=== PATIENT | female | born 1970 | race Caucasian/White ===

== ENCOUNTER → 2017-03-21 | Outpatient (CLI) | payer OTHER ==
[~2017-03-21] MED LIST: ANTIVERT 25MG25 MG PO; FLAGYL500 MG PO; NO HOME MEDICATIONS; PERCOCET 325 MG1 TA2 PO; PHENERGAN 25 TA25 MG PO; SUDAFED60 MG PO; VESICARE10 MG PO; WELLBUTRIN XL300 M1 PO; ZITHROMAX Z PA250 MG PO; ZOFRAN 4MG T4 MG/TAB PO
== END ==
LOC: MC.RAD 09:54
DX: Z12.31 Encounter for screening mammogram for malignant neoplasm of breast (principal)

== ENCOUNTER → 2018-05-01 | Outpatient (CLI) | payer OTHER | LOC: MC.RAD 08:20 | DX: Z12.31 Encounter for screening mammogram for malignant neoplasm of breast (principal) ==

== ENCOUNTER → 2021-03-16 | Day surgery (SDC) | payer OTHER | LOC: COL.LAB 08:00 → SDCO 11:30 | DX: Z20.822 Contact with and (suspected) exposure to COVID-19 (principal); Z53.8 Procedure and treatment not carried out for other reasons ==

== ENCOUNTER 2022-07-19 10:52 | Day surgery (SDC) | payer OTHER ==
[2022-07-19] VITALS (9 sets, daily range): BP systolic 107–147; BP diastolic 69–108; PULSE 50–73; TEMP 98.1
[~2022-07-19] VITALS: Ht 157.5 cm; Wt 84.3 kg
[2022-07-19 11:55] LABS: INR 1.2 (0.8-3.0); PROTHROMBIN TIME 13.9 SECONDS (9.7-12.8)
[2022-07-19 11:57] LABS: PARTIAL THROMBOPLASTIN TIME 32.5 SECONDS (26.0-37.0)
[2022-07-19 12:02] LABS: CALCIUM 9.1 mg/dL (8.4-10.2); CREATININE, serum 0.84 mg/dL (0.57-1.11); HEMATOCRIT 40.6 % (37.0-47.0); HEMOGLOBIN 13.2 g/dl (12.5-16.0); MEAN CELL VOLUME 88 fl (80.0-100.0); MEAN CORPUSCULAR HEMOGLOBIN 29 pg (27-31); MEAN CORPUSCULAR HGB CONC 33 g/dl (33.0-37.0); MEAN PLATELET VOLUME 9.7 fl (7.4-10.4); PLATELET COUNT 294 K/mm3 (130-400); POTASSIUM 4.5 mmol/L (3.5-4.5); RED BLOOD COUNT 4.61 M/mm3 (4.10-5.30); REDCELL DISTRIBUTION WIDTH-CV 13.2 % (11.5-14.5)
[2022-07-19] MEDS ORDERED: ASPIRIN E.C. 8181 MG PO (12:04)
[2022-07-19] MEDS ORDERED: CRESTOR40 MG PO (12:04)
[2022-07-19] MEDS ORDERED: PLAVIX 75MG TAB75 MG PO (12:04)
[2022-07-19] MEDS ORDERED: TOPROL XL 25MG25 MG PO (12:05)
[2022-07-19] MEDS ORDERED: QUALITY CHOICE125 MG PO (12:07)
[2022-07-19] MEDS ORDERED: CARAFATE S1 GM/10 ML PO (12:07)
[2022-07-19] MEDS ORDERED: PRIL40 PO (12:08)
[2022-07-19] MEDS ORDERED: IMDUR 30MG30 MG/TAB PO (13:34)
--- NOTE | 2022-07-19 14:46 | NUR ---
PT had some nausea and headache both of which were fairly severe. nausea was treated with zofran. nausea better now after pt vomited some liquid emesis. she was able to take some tylenol for her headache and at this time is generally feeling better. rt radial site looks good, is soft, no evidence of bleeding. nsr on monitor rate 60's
--- NOTE | 2022-07-19 15:45 | NUR ---
Pt ready for departure. Pt had a rough time during recovery with nausea and headache, however both of these sx have resolved at this time and pt feeling better. She was given 4 mg IV zofran and 1 gm po tylenol for her sx which helped. Rt radial site looks good, tr band was deflated and site dressed as normal with bandaid, folded 2x2 and coban. She has been up and is steady on her feet. IV dc'd./ I have reviewed dc/rx and fu instructions with pt who verbalizes understanding. Pt escorted to exit via wheelchair by Morgan. AYALA.
== END 2022-07-19 18:23 | disposition home or self-care (01) ==
LOC: COL.CAR 10:52
PROVIDERS: Internal Medicine Interventional Cardiology
DX: R07.9 Chest pain, unspecified (principal); R94.31 Abnormal electrocardiogram [ECG] [EKG]; R94.39 Abnormal result of other cardiovascular function study; K21.9 Gastro-esophageal reflux disease without esophagitis; F17.210 Nicotine dependence, cigarettes, uncomplicated; Z79.899 Other long term (current) drug therapy
CPT/HCPCS: J1644; J2250; J2405; J3010